=== PATIENT | male | born 1985 | race Asian ===

== ENCOUNTER 2022-01-08 13:41 | Outpatient (CLI) | payer OTHER ==
--- NOTE | 2022-01-08 17:20 | MRI Report ---
PROCEDURE: Lumbar Spine W/O INDICATIONS: NERVE ROOT AND PLEXUS DISORDER TECHNIQUE: Noncontrast sagittal T1 spin echo and T2 fast echo, sagittal STIR, axial T1 and T2 fast spin echo thr ough the lumbar spine. In cases with scoliosis, additional coronal T2 fast spin echo may be performe d. COMPARISON: None. FINDINGS: Image quality: Excellent. Alignment and Curvature: No plain films are available for comparison. Thus, for numbering purposes, 5 lumbar type vertebral bodies will be presumed for the current report. This should be confirmed with plain film correlation prior to any lumbar spinal intervention. There is loss of normal lumbar lordo sis. Bone Marrow: Marrow is of normal overall signal. No acute vertebral body compression fractures. Mi ld reactive signal throughout the endplates of the lumbar and lower thoracic spine. Spinal Cord: Conus medullaris terminates at the L1-L2 disc space level. Visualized cord demonstrate s normal signal and size. Paraspinous Soft Tissues: No paravertebral masses. T12-L1: Normal in appearance. L1-L2: Normal in appearance. L2-L3: Normal in appearance. L3-L4: Mild disc desiccation and diffuse disc bulge. Mild facet and ligament flavum hypertrophy. Mi ld epidural lipomatosis. Mild canal stenosis. Mild bilateral foraminal stenosis. L4-L5: Mild disc desiccation and diffuse disc bulge. Mild facet and ligament flavum hypertrophy. Mi ld canal stenosis. Mild bilateral foraminal stenosis. L5-S1: Mild disc desiccation and diffuse disc bulge. Mild bilateral facet hypertrophy. Mild canal s tenosis. Mild bilateral foraminal stenosis. IMPRESSION: 1. Multilevel degenerative disc and facet disease, as well as ligament flavum hypertrophy and epidura l lipomatosis. 2. Mild multilevel canal and foraminal stenoses. No neural impingement. 3. Five lumbar type vertebral bodies were presumed for the purposes of the current report. Correlat ion with plainfilms for numbering purposes is recommended prior to any lumbar spinal intervention. Reviewed by: Mary Colorado MD on 01/08/2022 4:19 PM [facility] Approved by: Mary Colorado MD on 01/08/2022 4:19 PM [facility] Station ID: [id number]
== END 2022-01-08 13:42 | disposition home or self-care (01) ==
LOC: DI 13:41 → EDSEX 15:00
PROVIDERS: ATTEND Student in an Organized Health Care Education/Training Program
DX: M47.26 Other spondylosis with radiculopathy, lumbar region (principal); M48.061 Spinal stenosis, lumbar region without neurogenic claudication; E88.2 Lipomatosis, not elsewhere classified; M47.27 Other spondylosis with radiculopathy, lumbosacral region; M51.37 Other intervertebral disc degeneration, lumbosacral region; M48.07 Spinal stenosis, lumbosacral region

== ENCOUNTER 2023-06-29 13:07 | Emergency (ER) | payer OTHER ==
[2023-06-29 13:36] LABS: BASOPHILS % (AUTO) 0.3 %; EOSINOPHILS % (AUTO) 0.1 %; HCT - HEMATOCRIT 44.8 % (42.0-52.0); HGB - HEMOGLOBIN 14.7 g/dL (14.0-18.0); LYMPHOCYTES # (AUTO) 0.5 10^3/uL (1.5-3.5); MEAN CORPUSCULAR HEMOGLOBIN 28.8 pg (27.0-31.0); MEAN CORPUSCULAR HGB CONC 32.8 g/dL (32.0-36.0); MEAN CORPUSCULAR VOLUME 87.7 fL (80.0-94.0); MEAN PLATELET VOLUME 10.1 fL (7.4-11.4); MONOCYTES # (AUTO) 0.4 10^3/uL (0.0-1.0); MONOCYTES % (AUTO) 6.4 %; NEUTROPHILS # (AUTO) 5.7 10^3/uL (1.5-6.6); NEUTROPHILS % (AUTO) 85.9 %; PLT - PLATELET COUNT 217 10^3/uL (130-450); RED BLOOD COUNT 5.11 10^6/uL (4.70-6.10); RED CELL DISTRIBUTION WIDTH 12.1 % (12.0-15.0); WHITE BLOOD COUNT 6.7 x10^3/uL (4.8-10.8)
[2023-06-29 13:46] LABS: ALBUMIN 4.6 g/dL (3.2-5.5); ALBUMIN/GLOBULIN RATIO 1.6 (1.0-2.2); BILIRUBIN,TOTAL 0.8 mg/dL (0.2-1.0); CALCIUM 9.4 mg/dL (8.5-10.3); POTASSIUM 3.6 mmol/L (3.5-4.5); TOTAL PROTEIN 7.5 g/dL (6.4-8.9)
[2023-06-29 13:53] LABS: TROPONIN I HIGH SENSITIVITY 2.8 ng/L (2.3-19.7)
--- NOTE | 2023-06-29 13:56 | ED Physician Documentation ---
PD HPI SYNCOPE - Stated complaint Stated Complaint: SYNCOPE - Chief complaint Chief Complaint: Neuro - History obtained from History obtained from: Patient, EMS - History of Present Illness Witnessed: Witnessed Timing - onset: Today Duration: Seconds Preceding symptoms: Light headed Contributing factors: Emotional upset Injury occurred: No: Fell, Head injury Pain level max: 0 Pain level now: 0 Recently seen: Not recently seen - Additional information Additional information: Patient is a 38-year-old male who presents to the emergency department after a syncopal event today. He was at his psychiatrist office at the [facility] when he began to have a panic attack. Was breathing rapidly, felt lightheaded and dizzy and had a syncopal event. He states he has passed out before from syncopal events. No vomiting. No headache. No chest pain. No shortness of breath. Feels normal now. No recent medication changes. He states he has had increasing stress at home. No cardiac history. No history of arrhythmias in the patient or his family. Review of Systems Constitutional: denies: Fever, Chills Nose: denies: Rhinorrhea / runny nose, Congestion Respiratory: denies: Cough GI: denies: Nausea, Vomiting, Diarrhea Skin: denies: Rash Musculoskeletal: denies: Neck pain, Back pain Neurologic: denies: Headache PD PAST MEDICAL HISTORY - Past Medical History Past Medical History: Yes Other Past Medical History: back pain - Past Surgical History Past Surgical History: No - Present Medications Home Medications: Ambulatory Orders Medication Instructions Recorded Confirmed Acetaminophen [Tylenol] 06/29/23 DULoxetine [Cymbalta] 06/29/23 Lidocaine Patch 5% [Lidoderm Patch] 06/29/23 Meloxicam 06/29/23 traZODone [Desyrel] 50 06/29/23 - Allergies Allergies/Adverse Reactions: Allergies Allergy/AdvReac Type Severity Reaction Status Date / Time No Known Drug Allergies Allergy Verified 06/29/23 13:13 - Social History Does the pt smoke?: No Smoking Status: Never smoker - Immunizations Immunizations are current?: Yes - POLST Patient has POLST: No PD ED PE NORMAL - Vitals Vital signs reviewed: Yes - General General: Alert and oriented X 3, No acute distress - HEENT HEENT: PERRL, Moist mucous membranes - Neck Neck: Supple, no meningeal sign, No bony TTP - Cardiac Cardiac: RRR, No murmur, Strong equal pulses - Respiratory Respiratory: No respiratory distress, Clear bilaterally - Abdomen Abdomen: Soft, Non tender, Non distended - Back Back: No CVA TTP, No spinal TTP - Derm Derm: Warm and dry - Extremities Extremities: No edema, No calf tenderness / cord - Neuro Neuro: Alert and oriented X 3 - Psych Psych: Normal mood, Normal affect Results - Vitals Vitals: Vital Signs - 24 hr 06/29/23 06/29/23 13:09 13:13 Temperature 36.6 C 36.6 C Heart Rate 84 84 Respiratory 20 20 Rate Blood Pressure 134/84 H 134/84 H O2 Saturation 99 99 Oxygen O2 Source Room air - EKG (time done) 1310 EKG releavant findings:: EKG personally interpreted by author of this note. Relevant findings are: Rate: Rate (enter#) (76) Rhythm: NSR E[place]: Normal Intervals: Normal NV QRS: Normal Ischemia: Normal ST segments - Labs Labs: Laboratory Tests 06/29/23 06/29/23 13:28 13:28 WBC 6.7 RBC 5.11 Hgb 14.7 Hct 44.8 MCV 87.7 MCH 28.8 MCHC 32.8 RDW 12.1 Plt Count 217 MPV 10.1 Neut # (Auto) 5.7 Lymph # (Auto) 0.5 L Kent # (Auto) 0.4 Eos # (Auto) 0.0 Baso # (Auto) 0.0 Absolute Nucleated RBC 0.00 Nucleated RBC % 0.0 Sodium 134 L Potassium 3.6 Chloride 100 L Carbon Dioxide 26 Anion Gap 8.0 BUN 15 Creatinine 1.0 Estimated GFR (MDRD) 83 L Glucose 180 H Calcium 9.4 Total Bilirubin 0.8 AST 22 ALT 25 Alkaline Phosphatase 56 Troponin I High Sens 2.8 Total Protein 7.5 Albumin 4.6 Globulin 2.9 Albumin/Globulin Ratio 1.6 Lipase 21 - Rads (name of study) cxr Relevant Findings:: Final report received, See rad report PD Medical Decision Making - ED course Complexity details: reviewed results, re-evaluated patient, considered differential, d/w patient ED course: 38-year-old male with what appears to be vasovagal syncope secondary to a panic attack and hyperventilation. Patient is asymptomatic here. No acute findings on telemetry, laboratory testing, EKG or chest x-ray. Patient is well- appearing, nontoxic. No chest pain. No abdominal pain. No pleurisy. No evidence of PE, ACS. No evidence of arrhythmia. Recommend he follow-up with his doctor for further care. Patient counseled regarding signs and symptoms for which I believe and urgent re-evaluation would be necessary. Patient with good understanding of and agreement to plan and is comfortable going home at this time This document was made in part using voice recognition software. While efforts are made to proofread this document, sound alike and grammatical errors may occur. Departure - Departure Disposition: Home, Self Care Clinical Impression: Panic attack Syncope Qualifiers: Syncope type: unspecified Qualified Code(s): R55 - Syncope and collapse Condition: Good Instructions: ED Panic Attack, ED Syncope Vasovagal Follow-Up: your,doctor in 1 week [Other] Comments: Your testing does not show any acute abnormalities today. Your EKG and laboratory testing did not show any significant abnormalities. Your sodium levels are slightly low, but can be rechecked in 1 week with your doctor. Your glucose level is slightly elevated but you were not fasting, therefore this can be rechecked with your doctor as well. Forms: PCP List
--- NOTE | 2023-06-29 14:23 | XRAY Report ---
PROCEDURE: Chest 1 View X-Ray INDICATIONS: syncope TECHNIQUE: One view of the chest was acquired. COMPARISON: None. FINDINGS: Surgical changes and devices: None. Lungs and pleura: No pleural effusions or pneumothorax. Elevation of the right hemidiaphragm. Lungs are clear. Mediastinum: Mediastinal contours appear normal. Heart size is normal. Bones and chest wall: No suspicious bony lesions. Overlying soft tissues appear unremarkable. IMPRESSION: No acute cardiopulmonary process. Reviewed by: Terry Ramirez MD on 06/29/2023 2:22 PM PST Approved by: Terry Ramirez MD on 06/29/2023 2:22 PM [facility] Station ID: [id number]
[2023-06-29 15:01] VITALS: BP 128/82; O2SAT 100
== END 2023-06-29 14:58 | disposition home or self-care (01) ==
LOC: EDUNIT# → ED 13:07
DX: F41.0 Panic disorder [episodic paroxysmal anxiety] (principal); R55 Syncope and collapse; Z79.899 Other long term (current) drug therapy
CPT/HCPCS: 36415; 80053; 83690; 84484; 85025; 93005; 99283; 99284

== ENCOUNTER 2023-12-14 14:49 | Outpatient (CLI) | payer OTHER | END 2023-12-14 14:50 | disposition home or self-care (01) | LOC: DI 14:49 | PROVIDERS: ATTEND Student in an Organized Health Care Education/Training Program | DX: I10 Essential (primary) hypertension (principal) | CPT/HCPCS: 93307 ==